=== PATIENT | male | born 2005 | race Caucasian/White ===

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

== ENCOUNTER 2023-12-16 08:34 | Emergency (ER) | payer OTHER ==
[~2023-12-16] VITALS: Ht 175.3 cm; Wt 150.1 kg
[2023-12-16 08:49] VITALS: PULSE 89; RESP 18; TEMP 97.5; O2SAT 98
[2023-12-16] MEDS ORDERED: IBUP-2213 PO (11:20)
== END 2023-12-16 11:36 | disposition home or self-care (01) ==
LOC: MED 08:34
DX: M25.561 Pain in right knee (principal); M25.562 Pain in left knee; Z79.899 Other long term (current) drug therapy
CPT/HCPCS: 73562; 99283